=== PATIENT | male | born 1950 | race Caucasian/White ===

== ENCOUNTER 2020-06-03 17:04 | Emergency (ER) | payer SELFPAY ==
[~2020-06-03] VITALS: Ht 157.5 cm; Wt 78.0 kg
[~2020-06-03 17:04] MED LIST: ALBU90AE INH; AMOX-424 MT; ASPI-1158 MT; ATOR20TA MT; CLOP75TA4 MT; METO25TA6 PO; PHEN100C4 PO
[2020-06-03 17:07] VITALS: BP 162/98
[2020-06-03 19:39] LABS: BASOPHILS % 0.9 % (0.0-2.0); EOSINOPHILS % 7.8 % (0.0-5.0); HEMATOCRIT. 32.8 % (42.0-52.0); HEMOGLOBIN. 11.5 g/dL (14.0-18.0); LYMPHOCYTES % 46.5 % (20.0-50.0); MEAN CORPUSCULAR HEMOGLOBIN 33.6 pg (28.0-32.0); MEAN CORPUSCULAR VOLUME 96.3 fL (80.0-94.0); MEAN PLATELET VOLUME 9.8 fl (7.4-10.4); MONOCYTES % 5.7 % (2.0-8.0); NEUTROPHILS % 39.1 % (40.0-76.0); PLATELET 195 x1000/uL (130-400); RED CELL DISTRIBUTION WIDTH 14.9 % (11.6-14.6)
[2020-06-03 19:40] LABS: CHLORIDE 90 mEq/L (98-107)
[2020-06-03 19:56] LABS: ETHANOL BLOOD 324 mg/dL
== END 2020-06-03 19:45 | disposition home or self-care (01) ==
LOC: ER 17:04
DX: S00.31XA Abrasion of nose, initial encounter (principal); E87.8 Other disorders of electrolyte and fluid balance, not elsewhere classified; I10 Essential (primary) hypertension; F10.129 Alcohol abuse with intoxication, unspecified; E78.00 Pure hypercholesterolemia, unspecified; Y90.8 Blood alcohol level of 240 mg/100 ml or more; Z79.82 Long term (current) use of aspirin; V43.52XA Car driver injured in collision with other type car in traffic accident, initial encounter; Y93.89 Activity, other specified; Y92.488 Other paved roadways as the place of occurrence of the external cause
CPT/HCPCS: 36415; 80053; 80320; 85025; 99283; G0480

== ENCOUNTER 2020-06-26 02:36 | Inpatient (IN) | payer BC, MEDICARE ==
[~2020-06-26] VITALS: Ht 170.2 cm; Wt 67.6 kg
[2020-06-26] MEDS ORDERED: FUROSEMIDE 40MG/4ML VIAL IV ONE (03:00)
[2020-06-26] MEDS ORDERED: MORPHINE SULFATE 4 MG/ML CPJ (NOT FOR IM USE) IV ONE (03:30)
[2020-06-26 03:36] LABS: BASOPHILS % 0.7 % (0.0-2.0); EOSINOPHILS % 2.2 % (0.0-5.0); HEMATOCRIT. 34.8 % (42.0-52.0); HEMOGLOBIN. 11.8 g/dL (14.0-18.0); LYMPHOCYTES % 17.5 % (20.0-50.0); MEAN CORPUSCULAR HEMOGLOBIN 34.2 pg (28.0-32.0); MEAN CORPUSCULAR VOLUME 101.1 fL (80.0-94.0); MEAN PLATELET VOLUME 9.8 fl (7.4-10.4); MONOCYTES % 8.3 % (2.0-8.0); NEUTROPHILS % 71.3 % (40.0-76.0); PLATELET 189 x1000/uL (130-400); RED BLOOD CELL COUNT 3.44 mill/uL (4.7-6.1); RED CELL DISTRIBUTION WIDTH 15.4 % (11.6-14.6)
[2020-06-26 03:41] LABS: CHLORIDE 104 mEq/L (98-107)
[2020-06-26 03:47] LABS: D-DIMER 1.71 mg/L FEU (<0.50); PARTIAL THROMBOPLASTIN TIME 25.6 sec (23.4-31.0); PROTHROMBIN TIME 10.6 sec (9.6-11.0)
[2020-06-26] MEDS ORDERED: DEXTROSE 50% WATER 50ML SYRINGE IV SCH (04:15)
[2020-06-26] MEDS ORDERED: INSULIN REGULAR (HUMULIN R) 300UNITS/3ML VIAL IV SCH (04:15)
[2020-06-26] MEDS ORDERED: CALCIUM CHLORIDE 1GM/10ML SYR IV SCH (04:15)
[2020-06-26] MEDS ORDERED: ASPIRIN 325MG EC TABLET PO SCH (04:15)
[2020-06-26] MEDS ORDERED: ALBUTEROL (0.083%) 2.5MG/3ML NEB HHN SCH (04:15)
[2020-06-26] MEDS ORDERED: SODIUM BICARBONATE 8.4% 1 MEQ/ML 50ML SYR IV SCH (04:15)
[2020-06-26] MEDS ORDERED: ALBUTEROL (0.5%) 2.5MG/0.5ML NEB HHN ONE (04:37)
[2020-06-26] MEDS: ENOXAPARIN 80MG/0.8ML SYR SUBCUT SCH ×2 (04:40→18:00)
[2020-06-26 05:17] LABS: PARTIAL THROMBOPLASTIN TIME 26.4 sec (23.4-31.0); PROTHROMBIN TIME 10.9 sec (9.6-11.0)
[2020-06-26] MEDS ORDERED: CLONIDINE 0.1MG TABLET PO PRN (10:30)
[2020-06-26] MEDS ORDERED: GUAIFENESIN 200MG/10ML SUGAR FREE UDC PO PRN (10:30)
[2020-06-26] MEDS ORDERED: LORAZEPAM 0.5MG TABLET PO PRN (10:30)
[2020-06-26] MEDS ORDERED: DIPHENHYDRAMINE 50MG/ML VIAL IV PRN (10:30)
[2020-06-26] MEDS ORDERED: ONDANSETRON HCL 4MG/2ML INJ IV PRN (10:30)
[2020-06-26] MEDS ORDERED: DOCUSATE SODIUM 100MG CAPSULE PO PRN (10:30)
[2020-06-26] MEDS ORDERED: CEFTRIAXONE 1 G PREMIX 50 ML IV NR (10:30)
[2020-06-26] MEDS ORDERED: ACETAMINOPHEN 650MG SUPP PR PRN (10:30)
[2020-06-26] MEDS ORDERED: NA PHOS,M-B/NA PHOS,DI-BA ENEMA 118ML PR PRN (10:30)
[2020-06-26] MEDS ORDERED: DEXTROSE 50% WATER 50ML SYRINGE IV PRN (10:30)
[2020-06-26] MEDS ORDERED: HYDROCODONE/ACETAMINOPHEN 5/325MG TABLET PO PRN (10:30)
[2020-06-26] MEDS ORDERED: ACETAMINOPHEN 325MG TABLET PO PRN (10:30)
[2020-06-26] MEDS ORDERED: MAGNESIUM/ALUMINUM HYDROXIDE/SIMETHICONE 30ML UDC PO PRN (10:30)
[2020-06-26] MEDS ORDERED: AZITHROMYCIN 500 MG in DEXT 5% WATER 250 ML IV SCH (11:00)
[2020-06-26 11:05] LABS: BG BASE EXCESS -7.4 mmol/L (-2.0-2.0); BG CARBOXYHEMOGLOBIN 0.2 % (0.5-1.5); BG DEOXYHEMOGLOBIN 0.9 % (0.0-5.0); BG FRACTION INSPIRED OXYGEN 60; BG HCO3 ACT 15.2 mmol/L (22.0-26.0); BG METHEMOGLOBIN 0.3 % (0.0-1.5); BG OXYGEN SATURATION 99.1 % (92.0-98.5); BG OXYHEMOGLOBIN 98.6 % (94.0-97.0); BG PCO2 22.2 mmHg (35.0-45.0); BG PH 7.453 (7.350-7.450); BG PO2 282.4 mmHg (75.0-100.0); BG SAMPLE SITE RIGHT RADIAL; BG TOTAL HEMOGLOBIN 9.5 g/dL (12.0-18.0); BG TOTAL RESPIRATORY RATE 21 b/min; BG VENT MODE MASK - BIPAP
[2020-06-26] MEDS: FAMOTIDINE 20MG/2ML VIAL IV SCH (11:36)
[2020-06-26] MEDS: INSULIN LISPRO 100 UNITS/ML SUBCUT SCH ×3 (13:20→21:16)
[2020-06-26] MEDS: BLOOD SUGAR DIAGNOSTIC STRIP TEST SCH ×3 (13:50→21:09)
[2020-06-26] MEDS: NITROGLYCERIN OINT 1GM/INCH UDPKT TD SCH ×2 (14:08→23:41)
[2020-06-26 15:09] LABS: CREATINE KINASE MB FRACTION 3.6 ng/mL (0.5-3.6)
[2020-06-26] MEDS ORDERED: IOHEXOL-350 100 ML BOTTLE ONE (19:01)
[2020-06-26] MEDS: ATORVASTATIN CALCIUM 20MG TABLET PO SCH (21:16)
[2020-06-26 23:00] VITALS: BP 121/72
[2020-06-27 00:28] VITALS: BP 117/74
[2020-06-27] MEDS: ENOXAPARIN 80MG/0.8ML SYR SUBCUT SCH ×2 (03:01→16:00)
[2020-06-27 04:00] VITALS: BP 130/76
[2020-06-27] MEDS: NITROGLYCERIN OINT 1GM/INCH UDPKT TD SCH ×3 (05:38→20:42)
[2020-06-27] MEDS: INSULIN LISPRO 100 UNITS/ML SUBCUT SCH ×4 (05:50→19:26)
[2020-06-27] MEDS: BLOOD SUGAR DIAGNOSTIC STRIP TEST SCH ×4 (05:50→19:26)
[2020-06-27 06:03] LABS: CHLORIDE 102 mEq/L (98-107)
[2020-06-27 06:14] LABS: LDL CHOLESTEROL 84 mg/dL (5-100)
[2020-06-27 06:15] LABS: HDL CHOLESTEROL 53 mg/dL (40-59); T4 FREE 1.02 ng/dL (0.76-1.46)
[2020-06-27 06:16] LABS: BASOPHILS % 0.8 % (0.0-2.0); EOSINOPHILS % 2.9 % (0.0-5.0); HEMOGLOBIN. 8.9 g/dL (14.0-18.0); LYMPHOCYTES % 22.3 % (20.0-50.0); MEAN CORPUSCULAR HEMOGLOBIN 34.1 pg (28.0-32.0); MEAN CORPUSCULAR VOLUME 99.8 fL (80.0-94.0); MEAN PLATELET VOLUME 9.7 fl (7.4-10.4); PLATELET 151 x1000/uL (130-400); RED BLOOD CELL COUNT 2.61 mill/uL (4.7-6.1); RED CELL DISTRIBUTION WIDTH 15.1 % (11.6-14.6)
[2020-06-27 08:00] VITALS: BP 138/86
[2020-06-27] MEDS: FAMOTIDINE 20MG/2ML VIAL IV SCH (08:33)
[2020-06-27] MEDS: ASPIRIN 81MG EC TABLET PO SCH (08:33)
[2020-06-27] MEDS: CLOPIDOGREL 75MG TABLET PO SCH (08:33)
[2020-06-27] MEDS: CEFTRIAXONE 1,000 MG in DEXTROSE 5% WATER 50 ML IV SCH (10:22)
[2020-06-27 12:25] VITALS: BP 130/66
[2020-06-27] MEDS: PHENYTOIN SODIUM EXTENDED 100MG CAPSULE PO SCH ×2 (12:45→20:42)
[2020-06-27] MEDS: AZITHROMYCIN 500 MG in DEXT 5% WATER 250 ML IV SCH (13:03)
[2020-06-27 14:17] LABS: BG BASE EXCESS -1.7 mmol/L (-2.0-2.0); BG DEOXYHEMOGLOBIN 3.7 % (0.0-5.0); BG FRACTION INSPIRED OXYGEN 21; BG HCO3 ACT 21.9 mmol/L (22.0-26.0); BG METHEMOGLOBIN 0.2 % (0.0-1.5); BG OXYGEN SATURATION 96.3 % (92.0-98.5); BG OXYHEMOGLOBIN 96.1 % (94.0-97.0); BG PCO2 33.2 mmHg (35.0-45.0); BG PH 7.438 (7.350-7.450); BG PO2 84.9 mmHg (75.0-100.0); BG SAMPLE SITE RIGHT RADIAL; BG TOTAL HEMOGLOBIN 10.3 g/dL (12.0-18.0); BG VENT MODE ROOM AIR
[2020-06-27 16:00] VITALS: BP 119/66
[2020-06-27 20:00] VITALS: BP 118/70
[2020-06-27] MEDS: ATORVASTATIN CALCIUM 20MG TABLET PO SCH (20:42)
[2020-06-28 00:01] VITALS: BP 137/76
[2020-06-28] MEDS: ENOXAPARIN 80MG/0.8ML SYR SUBCUT SCH (03:37)
[2020-06-28 04:00] VITALS: BP 124/81
[2020-06-28] MEDS: BLOOD SUGAR DIAGNOSTIC STRIP TEST SCH ×4 (05:45→19:55)
[2020-06-28] MEDS: NITROGLYCERIN OINT 1GM/INCH UDPKT TD SCH ×3 (05:45→20:52)
[2020-06-28] MEDS: PHENYTOIN SODIUM EXTENDED 100MG CAPSULE PO SCH ×3 (05:45→20:52)
[2020-06-28] MEDS: INSULIN LISPRO 100 UNITS/ML SUBCUT SCH ×4 (05:46→20:54)
[2020-06-28 07:14] LABS: BASOPHILS % 0.9 % (0.0-2.0); EOSINOPHILS % 3.4 % (0.0-5.0); HEMATOCRIT. 26.6 % (42.0-52.0); HEMOGLOBIN. 9.3 g/dL (14.0-18.0); LYMPHOCYTES % 18.1 % (20.0-50.0); MEAN CORPUSCULAR HEMOGLOBIN 34.6 pg (28.0-32.0); MEAN CORPUSCULAR VOLUME 98.8 fL (80.0-94.0); MEAN PLATELET VOLUME 9.5 fl (7.4-10.4); MONOCYTES % 12.3 % (2.0-8.0); NEUTROPHILS % 65.3 % (40.0-76.0); PLATELET 168 x1000/uL (130-400); RED BLOOD CELL COUNT 2.69 mill/uL (4.7-6.1); RED CELL DISTRIBUTION WIDTH 14.9 % (11.6-14.6)
[2020-06-28 07:19] LABS: CHLORIDE 102 mEq/L (98-107)
[2020-06-28 08:00] VITALS: BP 110/53
[2020-06-28] MEDS: CLOPIDOGREL 75MG TABLET PO SCH (10:03)
[2020-06-28] MEDS: ASPIRIN 81MG EC TABLET PO SCH (10:03)
[2020-06-28] MEDS: CEFTRIAXONE 1,000 MG in DEXTROSE 5% WATER 50 ML IV SCH (10:03)
[2020-06-28] MEDS: FAMOTIDINE 20MG/2ML VIAL IV SCH (10:03)
[2020-06-28 11:57] VITALS: BP 114/52
[2020-06-28] MEDS: AZITHROMYCIN 500 MG in DEXT 5% WATER 250 ML IV SCH (12:40)
[2020-06-28 15:28] VITALS: BP 113/62
[2020-06-28] MEDS: ENOXAPARIN 40MG/0.4ML SYR SUBCUT SCH (16:40)
[2020-06-28 20:00] VITALS: BP 130/73
[2020-06-28] MEDS: ATORVASTATIN CALCIUM 20MG TABLET PO SCH (20:52)
[2020-06-29] VITALS (7 sets, daily range): BP systolic 105–150; BP diastolic 59–98
[2020-06-29] MEDS: NITROGLYCERIN OINT 1GM/INCH UDPKT TD SCH ×3 (06:34→21:15)
[2020-06-29] MEDS: PHENYTOIN SODIUM EXTENDED 100MG CAPSULE PO SCH ×3 (06:34→21:15)
[2020-06-29] MEDS: BLOOD SUGAR DIAGNOSTIC STRIP TEST SCH ×4 (06:40→21:09)
[2020-06-29] MEDS: INSULIN LISPRO 100 UNITS/ML SUBCUT SCH ×4 (06:40→21:00)
[2020-06-29 07:27] LABS: CHLORIDE 103 mEq/L (98-107)
[2020-06-29 07:32] LABS: EOSINOPHILS % 4.5 % (0.0-5.0); HEMATOCRIT. 25.7 % (42.0-52.0); HEMOGLOBIN. 8.8 g/dL (14.0-18.0); LYMPHOCYTES % 22.2 % (20.0-50.0); MEAN PLATELET VOLUME 9.3 fl (7.4-10.4); MONOCYTES % 12.9 % (2.0-8.0); NEUTROPHILS % 59.4 % (40.0-76.0); PLATELET 161 x1000/uL (130-400); RED CELL DISTRIBUTION WIDTH 14.8 % (11.6-14.6)
[2020-06-29] MEDS: CLOPIDOGREL 75MG TABLET PO SCH (08:19)
[2020-06-29] MEDS: FAMOTIDINE 20MG/2ML VIAL IV SCH (08:19)
[2020-06-29] MEDS: ASPIRIN 81MG EC TABLET PO SCH (08:19)
[2020-06-29] MEDS: AZITHROMYCIN 500 MG TABLET PO SCH (08:19)
[2020-06-29] MEDS: ENOXAPARIN 40MG/0.4ML SYR SUBCUT SCH (08:19)
[2020-06-29] MEDS: CEFTRIAXONE 1,000 MG in DEXTROSE 5% WATER 50 ML IV SCH (11:04)
[2020-06-29 13:01] LABS: HEMATOCRIT 28.2 % (42.0-52.0); HEMOGLOBIN 9.5 g/dL (14.0-18.0)
[2020-06-29] MEDS ORDERED: FUROSEMIDE 40MG/4ML VIAL IVP SCH (19:15)
[2020-06-29] MEDS: ATORVASTATIN CALCIUM 20MG TABLET PO SCH (21:36)
[2020-06-30] VITALS (8 sets, daily range): BP systolic 99–136; BP diastolic 63–76
[2020-06-30] MEDS: LOSARTAN POTASSIUM 50 MG TABLET PO SCH ×2 (00:11→09:00)
[2020-06-30 06:04] LABS: BASOPHILS % 1.3 % (0.0-2.0); EOSINOPHILS % 3.7 % (0.0-5.0); HEMATOCRIT. 26.6 % (42.0-52.0); HEMOGLOBIN. 8.9 g/dL (14.0-18.0); MEAN CORPUSCULAR HEMOGLOBIN 33.2 pg (28.0-32.0); MEAN CORPUSCULAR VOLUME 98.8 fL (80.0-94.0); MEAN PLATELET VOLUME 9.7 fl (7.4-10.4); PLATELET 178 x1000/uL (130-400); RED BLOOD CELL COUNT 2.69 mill/uL (4.7-6.1); RED CELL DISTRIBUTION WIDTH 14.6 % (11.6-14.6)
[2020-06-30] MEDS: PHENYTOIN SODIUM EXTENDED 100MG CAPSULE PO SCH ×3 (06:19→21:03)
[2020-06-30] MEDS: NITROGLYCERIN OINT 1GM/INCH UDPKT TD SCH ×3 (06:19→21:03)
[2020-06-30] MEDS: BLOOD SUGAR DIAGNOSTIC STRIP TEST SCH ×4 (06:25→20:26)
[2020-06-30 06:26] LABS: CHLORIDE 103 mEq/L (98-107)
[2020-06-30] MEDS ORDERED: REGADENOSON 0.4 MG/5 ML IV ONE (06:45)
[2020-06-30 06:57] LABS: CLARITY URINE CLEAR (CLEAR); COLOR URINE YELLOW (YELLOW); KETONES URINE NEGATIVE (NEGATIVE); LEUKOCYTE ESTERASE URINE NEGATIVE (NEGATIVE); NITRITE URINE NEGATIVE (NEGATIVE); OCCULT BLOOD URINE NEGATIVE (NEGATIVE); PH URINE 6.5 (4.5-8.0); PROTEIN URINE NEGATIVE (NEGATIVE); SPECIFIC GRAVITY URINE 1.011 (1.005-1.030); UROBILINOGEN URINE 0.2 E.U./dL (0.2-1.0)
[2020-06-30 07:12] LABS: *BARBITURATES SCREEN URINE NEGATIVE (NEGATIVE); *BENZODIAZEPINES SCREEN URINE NEGATIVE (NEGATIVE); *COCAINE SCREEN URINE NEGATIVE (NEGATIVE)
[2020-06-30 07:13] LABS: *AMPHETAMINES SCREEN URINE NEGATIVE (NEGATIVE); CANNABINOID URINE SCREEN NEGATIVE (NEGATIVE); METHADONE URINE SCREEN NEGATIVE (NEGATIVE); OPIATES URINE SCREEN NEGATIVE (NEGATIVE); PHENCYCLIDINE URINE SCREEN NEGATIVE (NEGATIVE)
[2020-06-30] MEDS: INSULIN LISPRO 100 UNITS/ML SUBCUT SCH ×4 (07:50→21:04)
[2020-06-30] MEDS: FUROSEMIDE 40MG/4ML VIAL IVP SCH (09:00)
[2020-06-30] MEDS: AMLODIPINE 2.5MG TABLET PO SCH ×2 (09:00→21:03)
[2020-06-30] MEDS: AZITHROMYCIN 500 MG TABLET PO SCH (09:00)
[2020-06-30] MEDS: FAMOTIDINE 20MG/2ML VIAL IV SCH (09:41)
[2020-06-30] MEDS: ASPIRIN 81MG EC TABLET PO SCH (09:41)
[2020-06-30] MEDS: CLOPIDOGREL 75MG TABLET PO SCH (09:41)
[2020-06-30] MEDS: POTASSIUM CHLORIDE 20MEQ TABLET SR PO SCH (09:41)
[2020-06-30] MEDS: ENOXAPARIN 40MG/0.4ML SYR SUBCUT SCH (11:06)
[2020-06-30] MEDS: CEFTRIAXONE 1,000 MG in DEXTROSE 5% WATER 50 ML IV SCH (11:09)
[2020-06-30] MEDS ORDERED: FUROSEMIDE 40MG/4ML VIAL IVP SCH (15:00)
[2020-06-30] MEDS: ATORVASTATIN CALCIUM 20MG TABLET PO SCH (21:03)
[2020-07-01] VITALS: BP 125/60
[2020-07-01] MEDS ORDERED: DEXT 5%/0.9% NACL 1,000 ML IV SCH
[2020-07-01 04:09] VITALS: BP 120/70
[2020-07-01] MEDS: PHENYTOIN SODIUM EXTENDED 100MG CAPSULE PO SCH ×3 (05:01→21:22)
[2020-07-01] MEDS: NITROGLYCERIN OINT 1GM/INCH UDPKT TD SCH ×3 (06:14→17:13)
[2020-07-01] MEDS: BLOOD SUGAR DIAGNOSTIC STRIP TEST SCH ×4 (06:23→21:22)
[2020-07-01 06:56] LABS: EOSINOPHILS % 4.3 % (0.0-5.0); HEMATOCRIT. 28.2 % (42.0-52.0); HEMOGLOBIN. 9.6 g/dL (14.0-18.0); LYMPHOCYTES % 24.8 % (20.0-50.0); MEAN CORPUSCULAR HEMOGLOBIN 33.7 pg (28.0-32.0); MEAN CORPUSCULAR VOLUME 98.8 fL (80.0-94.0); MEAN PLATELET VOLUME 9.4 fl (7.4-10.4); MONOCYTES % 9.6 % (2.0-8.0); NEUTROPHILS % 60.3 % (40.0-76.0); PLATELET 201 x1000/uL (130-400); RED BLOOD CELL COUNT 2.85 mill/uL (4.7-6.1); RED CELL DISTRIBUTION WIDTH 15.1 % (11.6-14.6)
[2020-07-01 07:09] LABS: CHLORIDE 102 mEq/L (98-107)
[2020-07-01] MEDS: INSULIN LISPRO 100 UNITS/ML SUBCUT SCH ×4 (07:50→21:00)
[2020-07-01 08:11] VITALS: BP 149/81
[2020-07-01] MEDS: ENOXAPARIN 40MG/0.4ML SYR SUBCUT SCH (08:28)
[2020-07-01] MEDS: ASPIRIN 81MG EC TABLET PO SCH (08:28)
[2020-07-01] MEDS: FUROSEMIDE 40MG/4ML VIAL IVP SCH (08:28)
[2020-07-01] MEDS: FAMOTIDINE 20MG/2ML VIAL IV SCH (08:28)
[2020-07-01] MEDS: CLOPIDOGREL 75MG TABLET PO SCH (08:28)
[2020-07-01] MEDS: LOSARTAN POTASSIUM 50 MG TABLET PO SCH (08:28)
[2020-07-01] MEDS: POTASSIUM CHLORIDE 20MEQ TABLET SR PO SCH (08:29)
[2020-07-01] MEDS: AMLODIPINE 2.5MG TABLET PO SCH ×2 (08:29→21:00)
[2020-07-01] MEDS ORDERED: IPRATROPIUM/ALBUTEROL 0.5-3(2.5)MG/3ML NEB HHN NR (08:30)
[2020-07-01] MEDS: CEFTRIAXONE 1,000 MG in DEXTROSE 5% WATER 50 ML IV SCH (12:02)
[2020-07-01 12:12] VITALS: BP 135/73
[2020-07-01] MEDS ORDERED: NITROGLYCERIN 0.4MG TABLET SL SL PRN (13:15)
[2020-07-01] MEDS: IPRATROPIUM/ALBUTEROL 0.5-3(2.5)MG/3ML NEB HHN SCH ×2 (13:31→21:27)
[2020-07-01 15:53] VITALS: BP 133/77
[2020-07-01 20:00] VITALS: BP 94/52
[2020-07-01] MEDS: ATORVASTATIN CALCIUM 20MG TABLET PO SCH (21:22)
[2020-07-02] VITALS (11 sets, daily range): BP systolic 100–140; BP diastolic 57–98
[2020-07-02] MEDS: IPRATROPIUM/ALBUTEROL 0.5-3(2.5)MG/3ML NEB HHN SCH ×2 (01:39→09:32)
[2020-07-02] MEDS: NITROGLYCERIN OINT 1GM/INCH UDPKT TD SCH ×5 (06:00→23:54)
[2020-07-02] MEDS: PHENYTOIN SODIUM EXTENDED 100MG CAPSULE PO SCH ×3 (06:16→21:23)
[2020-07-02] MEDS: BLOOD SUGAR DIAGNOSTIC STRIP TEST SCH ×4 (06:17→21:11)
[2020-07-02 06:50] LABS: HEMATOCRIT. 27.5 % (42.0-52.0); HEMOGLOBIN. 9.4 g/dL (14.0-18.0); MEAN CORPUSCULAR HEMOGLOBIN 33.6 pg (28.0-32.0); MEAN CORPUSCULAR VOLUME 98.4 fL (80.0-94.0); MEAN PLATELET VOLUME 9.4 fl (7.4-10.4); PLATELET 211 x1000/uL (130-400); RED CELL DISTRIBUTION WIDTH 15.2 % (11.6-14.6)
[2020-07-02 07:20] LABS: CHLORIDE 105 mEq/L (98-107)
[2020-07-02] MEDS: INSULIN LISPRO 100 UNITS/ML SUBCUT SCH ×4 (07:50→21:23)
[2020-07-02] MEDS: LOSARTAN POTASSIUM 50 MG TABLET PO SCH (09:00)
[2020-07-02] MEDS: AMLODIPINE 2.5MG TABLET PO SCH ×2 (09:00→21:23)
[2020-07-02] MEDS: ASPIRIN 81MG EC TABLET PO SCH (09:00)
[2020-07-02] MEDS: FUROSEMIDE 40MG/4ML VIAL IVP SCH (09:00)
[2020-07-02] MEDS: POTASSIUM CHLORIDE 20MEQ TABLET SR PO SCH (09:00)
[2020-07-02] MEDS: CLOPIDOGREL 75MG TABLET PO SCH (09:00)
[2020-07-02] MEDS: FAMOTIDINE 20MG/2ML VIAL IV SCH (09:00)
[2020-07-02] MEDS ORDERED: NITROGLYCERIN 50MCG/ML 10ML VIAL (CATH LAB) IV ONE (12:00)
[2020-07-02] MEDS ORDERED: SODIUM CHLORIDE 0.45% 1,000 ML IV ONE (12:00)
[2020-07-02] MEDS ORDERED: NICARDIPINE 100MCG/ML 10ML VIAL (CATH LAB) IV ONE (12:00)
[2020-07-02] MEDS ORDERED: HEPARIN SODIUM 1,000 UNIT/1ML VIAL IV ONE (12:00)
[2020-07-02] MEDS ORDERED: IODIXANOL 320MG/ML 100 ML BOTTLE IV ONE ×2 (12:45→14:03)
[2020-07-02] MEDS ORDERED: LIDOCAINE HCL 1% 20ML VIAL (Pyxis) INJ ONE (12:45)
[2020-07-02] MEDS ORDERED: MIDAZOLAM HCL 2 MG/2 ML VIAL ONE (12:58)
[2020-07-02] MEDS ORDERED: FENTANYL CITRATE/PF 50MCG/ML 2ML VIAL ONE (12:59)
[2020-07-02 13:05] LABS: PLATELET ESTIMATE NORMAL
[2020-07-02] MEDS ORDERED: IOHEXOL-300 100 ML BOTTLE ONE (13:44)
[2020-07-02] MEDS ORDERED: ACETAMINOPHEN 325MG TABLET PO PRN (14:45)
[2020-07-02] MEDS ORDERED: ONDANSETRON HCL 4MG/2ML INJ IV PRN (14:45)
[2020-07-02] MEDS ORDERED: ATROPINE SULFATE 1MG/10ML SYR IV PRN (14:45)
[2020-07-02] MEDS ORDERED: CLOPIDOGREL 75MG TABLET ONE (14:48)
[2020-07-02] MEDS ORDERED: ASPIRIN 325MG EC TABLET PO ONE (14:49)
[2020-07-02] MEDS: ATORVASTATIN CALCIUM 20MG TABLET PO SCH (21:23)
[2020-07-03] VITALS (10 sets, daily range): BP systolic 106–144; BP diastolic 60–94
[2020-07-03] MEDS: IPRATROPIUM/ALBUTEROL 0.5-3(2.5)MG/3ML NEB HHN SCH ×3 (01:03→16:26)
[2020-07-03] MEDS: NITROGLYCERIN OINT 1GM/INCH UDPKT TD SCH ×2 (05:49→14:32)
[2020-07-03] MEDS: PHENYTOIN SODIUM EXTENDED 100MG CAPSULE PO SCH ×2 (05:49→14:31)
[2020-07-03] MEDS: BLOOD SUGAR DIAGNOSTIC STRIP TEST SCH ×3 (06:35→16:50)
[2020-07-03] MEDS: INSULIN LISPRO 100 UNITS/ML SUBCUT SCH ×3 (06:35→17:20)
[2020-07-03 07:15] LABS: CHLORIDE 103 mEq/L (98-107)
[2020-07-03 07:46] LABS: BASOPHILS % 0.8 % (0.0-2.0); HEMATOCRIT. 27.4 % (42.0-52.0); HEMOGLOBIN. 9.3 g/dL (14.0-18.0); LYMPHOCYTES % 9.6 % (20.0-50.0); MEAN CORPUSCULAR HEMOGLOBIN 33.6 pg (28.0-32.0); MEAN PLATELET VOLUME 9.6 fl (7.4-10.4); MONOCYTES % 8.6 % (2.0-8.0); PLATELET 218 x1000/uL (130-400); RED BLOOD CELL COUNT 2.77 mill/uL (4.7-6.1); RED CELL DISTRIBUTION WIDTH 15.2 % (11.6-14.6)
[2020-07-03] MEDS: LOSARTAN POTASSIUM 50 MG TABLET PO SCH ×2 (09:00→10:00)
[2020-07-03] MEDS: AMLODIPINE 2.5MG TABLET PO SCH (09:00)
[2020-07-03] MEDS ORDERED: ASPIRIN 325MG TABLET PO SCH (09:00)
[2020-07-03] MEDS ORDERED: CLOPIDOGREL 75MG TABLET PO SCH (09:00)
[2020-07-03] MEDS: ASPIRIN 81MG EC TABLET PO SCH (09:00)
[2020-07-03] MEDS: POTASSIUM CHLORIDE 20MEQ TABLET SR PO SCH (10:01)
[2020-07-03] MEDS: FAMOTIDINE 20MG/2ML VIAL IV SCH (10:02)
[2020-07-03] MEDS: FUROSEMIDE 40MG/4ML VIAL IVP SCH (10:02)
[2020-07-03] MEDS ORDERED: FURO-151 MT (11:28)
[2020-07-03] MEDS ORDERED: LORAZEPAM 2MG/ML CPJ IV PRN (11:30)
[2020-07-03] MEDS ORDERED: THIAMINE HCL 100MG TABLET PO SCH (11:30)
[2020-07-03] MEDS ORDERED: MULTIVITAMINS,THER W-MINERALS TABLET PO SCH (11:30)
[2020-07-03] MEDS ORDERED: FOLIC ACID 1MG TABLET PO SCH (11:30)
[2020-07-03] MEDS ORDERED: METOPROLOL TARTRATE 25MG TABLET PO SCH (13:00)
== END 2020-07-03 18:00 | disposition home or self-care (01) | DRG 246 ==
LOC: ER 02:36 → 6WST 06:42 → SUPCPDRO 10:18 → EDBEDREQSVC 14:26 → CANRESERV 20:38 → ENRESERV 20:38 → 3WST 07-02 15:02
PROVIDERS: ADMIT Internal Medicine; ATTEND Internal Medicine
PROC: 5A09357 Assistance with Respiratory Ventilation, Less than 24 Consecutive Hours, Continuous Positive Airway Pressure (ICD-10-PCS; 2020-06-26)
PROC: 027035Z Dilation of Coronary Artery, One Artery with Two Drug-eluting Intraluminal Devices, Percutaneous Approach (ICD-10-PCS; principal; 2020-07-02)
PROC: 4A023N6 Measurement of Cardiac Sampling and Pressure, Right Heart, Percutaneous Approach (ICD-10-PCS; 2020-07-02)
PROC: B2111ZZ Fluoroscopy of Multiple Coronary Arteries using Low Osmolar Contrast (ICD-10-PCS; 2020-07-02)
PROC: B2151ZZ Fluoroscopy of Left Heart using Low Osmolar Contrast (ICD-10-PCS; 2020-07-02)
DX: T82.855A Stenosis of coronary artery stent, initial encounter (principal); I21.4 Non-ST elevation (NSTEMI) myocardial infarction; J96.01 Acute respiratory failure with hypoxia; I50.33 Acute on chronic diastolic (congestive) heart failure; J18.9 Pneumonia, unspecified organism; E87.1 Hypo-osmolality and hyponatremia; G93.40 Encephalopathy, unspecified; R04.2 Hemoptysis; I25.10 Atherosclerotic heart disease of native coronary artery without angina pectoris; E87.5 Hyperkalemia; I11.0 Hypertensive heart disease with heart failure; E78.5 Hyperlipidemia, unspecified; E11.9 Type 2 diabetes mellitus without complications; F10.20 Alcohol dependence, uncomplicated; D64.9 Anemia, unspecified; I27.20 Pulmonary hypertension, unspecified; F17.200 Nicotine dependence, unspecified, uncomplicated; I34.0 Nonrheumatic mitral (valve) insufficiency; J98.01 Acute bronchospasm; Y83.1 Surgical operation with implant of artificial internal device as the cause of abnormal reaction of the patient, or of later complication, without mention of misadventure at the time of the procedure; Z20.828 Contact with and (suspected) exposure to other viral communicable diseases; Y92.89 Other specified places as the place of occurrence of the external cause; Z79.02 Long term (current) use of antithrombotics/antiplatelets; Z95.5 Presence of coronary angioplasty implant and graft; I25.2 Old myocardial infarction; Z79.899 Other long term (current) drug therapy; Z79.2 Long term (current) use of antibiotics; Z79.82 Long term (current) use of aspirin; Z72.89 Other problems related to lifestyle
CPT/HCPCS: 36415; 36600; 71045; 71275; 80048; 80053; 80061; 80305; 81003; 82270; 82375; 82550; 82553; 82805; 82962; 83036; 83880; 84132; 84439; 84443; 84484; 85014; 85018; 85025; 85347; 85379; 86850; 86900; 87635; 92928; 93005; 93306; 93454; 93970; 94618; 94660; 99285; C1760; C1769; C1874; C1887; C1893; J0456; J0696; J1644; J1650; J1815; J1940; J2250; J2270; J3010; J3490; J7042; J7060; Q9967; C1725

== ENCOUNTER 2020-10-22 12:50 | Inpatient (IN) | payer MEDICARE, OTHER ==
[~2020-10-22] VITALS: Ht 165.1 cm; Wt 71.2 kg
[2020-10-22] MEDS: INSULIN LISPRO 100 UNITS/ML SUBCUT SCH (07:47)
[~2020-10-22 12:50] MED LIST changes: -ASPI-1158 MT; +ASPI-1406 MT; +CLOP-31 MT; -CLOP75TA4 MT; +FURO-151 MT
[2020-10-22] MEDS ORDERED: ASPIRIN 81MG TABLET PO ONE (13:30)
[2020-10-22] MEDS ORDERED: NITROGLYCERIN OINT 1GM/INCH UDPKT TD ONE (13:30)
[2020-10-22] MEDS ORDERED: FUROSEMIDE 40MG/4ML VIAL IV ONE (13:30)
[2020-10-22 14:13] LABS: BASOPHILS % 0.9 % (0.0-2.0); EOSINOPHILS % 1.2 % (0.0-5.0); HEMATOCRIT. 37.8 % (42.0-52.0); HEMOGLOBIN. 12.2 g/dL (14.0-18.0); LYMPHOCYTES % 23.8 % (20.0-50.0); MEAN CORPUSCULAR HEMOGLOBIN 31.7 pg (28.0-32.0); MEAN CORPUSCULAR VOLUME 97.9 fL (80.0-94.0); MEAN PLATELET VOLUME 10.1 fl (7.4-10.4); MONOCYTES % 6.8 % (2.0-8.0); NEUTROPHILS % 67.3 % (40.0-76.0); PLATELET 150 x1000/uL (130-400); RED BLOOD CELL COUNT 3.86 mill/uL (4.7-6.1)
[2020-10-22 14:19] LABS: CHLORIDE 98 mEq/L (98-107)
[2020-10-22] MEDS ORDERED: SODIUM BICARBONATE 8.4% 1 MEQ/ML 50ML SYR IV ONE (15:15)
[2020-10-22] MEDS ORDERED: DEXTROSE 50% WATER 50ML SYRINGE IV ONE (15:15)
[2020-10-22] MEDS ORDERED: ALBUTEROL (0.083%) 2.5MG/3ML NEB HHN ONE (15:15)
[2020-10-22] MEDS ORDERED: INSULIN REGULAR (HUMULIN R) 300UNITS/3ML VIAL IV ONE (15:15)
[2020-10-22] MEDS ORDERED: SODIUM POLYSTYRENE SULFONATE 15 G/60 ML BOT PO ONE (15:15)
[2020-10-22 15:37] LABS: D-DIMER 3.34 mg/L FEU (<0.50); INR 1.4; PARTIAL THROMBOPLASTIN TIME 29.1 sec (23.4-31.0); PROTHROMBIN TIME 14.7 sec (9.6-11.0)
[2020-10-22] MEDS ORDERED: IPRATROPIUM/ALBUTEROL 0.5-3(2.5)MG/3ML NEB NEB PRN (19:00)
[2020-10-22] MEDS ORDERED: DEXTROSE 50% WATER 50ML SYRINGE IV PRN (19:00)
[2020-10-22] MEDS ORDERED: HYDROCODONE/ACETAMINOPHEN 5/325MG TABLET PO PRN (19:00)
[2020-10-22] MEDS ORDERED: NA PHOS,M-B/NA PHOS,DI-BA ENEMA 118ML PR PRN (19:00)
[2020-10-22] MEDS ORDERED: LORAZEPAM 0.5MG TABLET PO PRN (19:00)
[2020-10-22] MEDS ORDERED: ACETAMINOPHEN 650MG SUPP PR PRN (19:00)
[2020-10-22] MEDS ORDERED: GUAIFENESIN 200MG/10ML SUGAR FREE UDC PO PRN (19:00)
[2020-10-22] MEDS ORDERED: MAGNESIUM/ALUMINUM HYDROXIDE/SIMETHICONE 30ML UDC PO PRN (19:00)
[2020-10-22] MEDS ORDERED: DIPHENHYDRAMINE 50MG/ML VIAL IV PRN (19:00)
[2020-10-22] MEDS ORDERED: CLONIDINE 0.1MG TABLET PO PRN (19:00)
[2020-10-22] MEDS ORDERED: DOCUSATE SODIUM 100MG CAPSULE PO PRN (19:00)
[2020-10-22] MEDS ORDERED: ONDANSETRON HCL 4MG/2ML INJ IV PRN (19:00)
[2020-10-22] MEDS ORDERED: ACETAMINOPHEN 325MG TABLET PO PRN (19:00)
[2020-10-22] MEDS ORDERED: IOHEXOL-350 100 ML BOTTLE ONE (19:02)
[2020-10-22] MEDS: BLOOD SUGAR DIAGNOSTIC STRIP TEST SCH (21:00)
[2020-10-22 23:17] LABS: BG BASE EXCESS 2.8 mmol/L (-2.0-2.0); BG CARBOXYHEMOGLOBIN 0.5 % (0.5-1.5); BG DEOXYHEMOGLOBIN 6.2 % (0.0-5.0); BG FRACTION INSPIRED OXYGEN 21; BG METHEMOGLOBIN 0.3 % (0.0-1.5); BG OXYGEN SATURATION 93.8 % (92.0-98.5); BG PCO2 35.2 mmHg (35.0-45.0); BG PH 7.486 (7.350-7.450); BG PO2 68.7 mmHg (75.0-100.0); BG SAMPLE SITE RIGHT BRACHIAL; BG TOTAL HEMOGLOBIN 12.1 g/dL (12.0-18.0); BG VENT MODE ROOM AIR
[2020-10-23 00:17] LABS: CREATINE KINASE MB FRACTION 4.5 ng/mL (0.5-3.6)
[2020-10-23 01:56] VITALS: BP 141/70
[2020-10-23 04:00] VITALS: BP 124/64
[2020-10-23 07:17] LABS: BASOPHILS % 0.5 % (0.0-2.0); EOSINOPHILS % 1.8 % (0.0-5.0); HEMATOCRIT. 36.2 % (42.0-52.0); HEMOGLOBIN. 11.8 g/dL (14.0-18.0); LYMPHOCYTES % 17.8 % (20.0-50.0); MEAN CORPUSCULAR HEMOGLOBIN 31.6 pg (28.0-32.0); MEAN CORPUSCULAR VOLUME 96.9 fL (80.0-94.0); MEAN PLATELET VOLUME 10.2 fl (7.4-10.4); MONOCYTES % 7.1 % (2.0-8.0); NEUTROPHILS % 72.8 % (40.0-76.0); PLATELET 137 x1000/uL (130-400); RED BLOOD CELL COUNT 3.73 mill/uL (4.7-6.1); RED CELL DISTRIBUTION WIDTH 17.6 % (11.6-14.6)
[2020-10-23] MEDS: BLOOD SUGAR DIAGNOSTIC STRIP TEST SCH ×4 (07:20→21:00)
[2020-10-23 07:40] LABS: CHLORIDE 102 mEq/L (98-107)
[2020-10-23] MEDS: INSULIN LISPRO 100 UNITS/ML SUBCUT SCH ×4 (07:48→21:00)
[2020-10-23 07:57] LABS: LDL CHOLESTEROL 118 mg/dL (5-100); T4 FREE 1.08 ng/dL (0.76-1.46)
[2020-10-23 07:58] LABS: CREATINE KINASE 210 IU/L (39-308)
[2020-10-23 08:00] VITALS: BP 124/68
[2020-10-23 08:00] LABS: HDL CHOLESTEROL 39 mg/dL (40-59)
[2020-10-23] MEDS: FUROSEMIDE 40MG/4ML VIAL IVP SCH ×2 (09:00→22:00)
[2020-10-23] MEDS: METOPROLOL TARTRATE 25MG TABLET PO SCH ×3 (09:00→21:51)
[2020-10-23] MEDS ORDERED: SODIUM BICARBONATE 4% (2.4MEQ) 5ML VIAL IV ONE (09:28)
[2020-10-23] MEDS: PHENYTOIN SODIUM EXTENDED 100MG CAPSULE PO SCH ×3 (10:19→17:45)
[2020-10-23] MEDS ORDERED: POTASSIUM CHLORIDE INJ 40 MEQ in DEXT 5% WATER 250 ML IV NR (11:00)
[2020-10-23 12:00] VITALS: BP 114/62
[2020-10-23] MEDS ORDERED: POTASSIUM CHLORIDE 20MEQ TABLET SR PO SCH (13:00)
[2020-10-23] MEDS ORDERED: POTASSIUM CHLORIDE 20MEQ/PACKET PO NR (14:45)
[2020-10-23] MEDS ORDERED: CLOPIDOGREL 75MG TABLET PO SCH (15:45)
[2020-10-23 16:00] VITALS: BP 124/66
[2020-10-23 20:00] VITALS: BP 137/94
[2020-10-23] MEDS: FAMOTIDINE 20MG TABLET PO SCH (21:52)
[2020-10-24 00:46] VITALS: BP 107/67
[2020-10-24 02:12] LABS: CLARITY URINE CLEAR (CLEAR); COLOR URINE YELLOW (YELLOW); KETONES URINE NEGATIVE (NEGATIVE); LEUKOCYTE ESTERASE URINE NEGATIVE (NEGATIVE); NITRITE URINE NEGATIVE (NEGATIVE); OCCULT BLOOD URINE NEGATIVE (NEGATIVE); PROTEIN URINE NEGATIVE (NEGATIVE); SPECIFIC GRAVITY URINE 1.011 (1.005-1.030)
[2020-10-24 02:24] LABS: *BARBITURATES SCREEN URINE NEGATIVE (NEGATIVE); *BENZODIAZEPINES SCREEN URINE NEGATIVE (NEGATIVE); *COCAINE SCREEN URINE NEGATIVE (NEGATIVE)
[2020-10-24 02:26] LABS: CANNABINOID URINE SCREEN NEGATIVE (NEGATIVE); OPIATES URINE SCREEN NEGATIVE (NEGATIVE)
[2020-10-24 02:28] LABS: *AMPHETAMINES SCREEN URINE NEGATIVE (NEGATIVE)
[2020-10-24 02:31] LABS: METHADONE URINE SCREEN NEGATIVE (NEGATIVE)
[2020-10-24 02:37] LABS: PHENCYCLIDINE URINE SCREEN NEGATIVE (NEGATIVE)
[2020-10-24 04:00] VITALS: BP 112/82
[2020-10-24] MEDS: BLOOD SUGAR DIAGNOSTIC STRIP TEST SCH ×4 (06:50→20:24)
[2020-10-24 07:22] LABS: CHLORIDE 100 mEq/L (98-107)
[2020-10-24] MEDS: INSULIN LISPRO 100 UNITS/ML SUBCUT SCH ×4 (07:44→20:25)
[2020-10-24 07:48] LABS: BASOPHILS % 0.8 % (0.0-2.0); EOSINOPHILS % 3.7 % (0.0-5.0); HEMATOCRIT. 32.7 % (42.0-52.0); HEMOGLOBIN. 10.9 g/dL (14.0-18.0); LYMPHOCYTES % 23.6 % (20.0-50.0); MEAN CORPUSCULAR HEMOGLOBIN 32.1 pg (28.0-32.0); MEAN PLATELET VOLUME 10.5 fl (7.4-10.4); MONOCYTES % 6.6 % (2.0-8.0); NEUTROPHILS % 65.3 % (40.0-76.0); PLATELET 132 x1000/uL (130-400); RED BLOOD CELL COUNT 3.41 mill/uL (4.7-6.1); RED CELL DISTRIBUTION WIDTH 17.5 % (11.6-14.6)
[2020-10-24] MEDS ORDERED: SODIUM BICARBONATE 4% (2.4MEQ) 5ML VIAL IV ONE (07:58)
[2020-10-24 08:00] VITALS: BP 138/76
[2020-10-24] MEDS ORDERED: ASPIRIN 81MG EC TABLET PO SCH (09:00)
[2020-10-24] MEDS: METOPROLOL TARTRATE 25MG TABLET PO SCH ×2 (09:41→20:24)
[2020-10-24] MEDS: PHENYTOIN SODIUM EXTENDED 100MG CAPSULE PO SCH ×3 (09:41→17:12)
[2020-10-24] MEDS: ASPIRIN 81MG EC TABLET PO SCH (11:54)
[2020-10-24] MEDS: CLOPIDOGREL 75MG TABLET PO SCH (11:54)
[2020-10-24 12:19] VITALS: BP 128/68
[2020-10-24] MEDS ORDERED: FURO-151 MT (13:02)
[2020-10-24] MEDS ORDERED: CLOP-31 MT (13:02)
[2020-10-24] MEDS ORDERED: METO25TA6 PO (13:02)
[2020-10-24] MEDS ORDERED: ATOR20TA MT (13:02)
[2020-10-24] MEDS ORDERED: ASPI-1497 MT (13:02)
[2020-10-24 16:00] VITALS: BP 118/58
[2020-10-24 20:10] VITALS: BP 146/82
[2020-10-24] MEDS: FAMOTIDINE 20MG TABLET PO SCH (20:24)
[2020-10-25 00:11] VITALS: BP 128/76
[2020-10-25 04:36] VITALS: BP 139/83
[2020-10-25] MEDS: INSULIN LISPRO 100 UNITS/ML SUBCUT SCH ×2 (06:23→13:03)
[2020-10-25] MEDS: BLOOD SUGAR DIAGNOSTIC STRIP TEST SCH ×2 (06:23→12:57)
[2020-10-25 06:58] LABS: CHLORIDE 98 mEq/L (98-107)
[2020-10-25 07:06] LABS: BASOPHILS % 0.8 % (0.0-2.0); EOSINOPHILS % 1.7 % (0.0-5.0); HEMATOCRIT. 32.8 % (42.0-52.0); HEMOGLOBIN. 10.8 g/dL (14.0-18.0); LYMPHOCYTES % 20.6 % (20.0-50.0); MEAN CORPUSCULAR HEMOGLOBIN 31.5 pg (28.0-32.0); MEAN CORPUSCULAR VOLUME 95.2 fL (80.0-94.0); MEAN PLATELET VOLUME 10.5 fl (7.4-10.4); NEUTROPHILS % 70.9 % (40.0-76.0); PLATELET 129 x1000/uL (130-400); RED BLOOD CELL COUNT 3.44 mill/uL (4.7-6.1); RED CELL DISTRIBUTION WIDTH 17.4 % (11.6-14.6)
[2020-10-25 08:00] VITALS: BP 130/74
[2020-10-25] MEDS: FUROSEMIDE 40MG/4ML VIAL IVP SCH (10:10)
[2020-10-25] MEDS: PHENYTOIN SODIUM EXTENDED 100MG CAPSULE PO SCH ×2 (10:10→13:01)
[2020-10-25] MEDS: CLOPIDOGREL 75MG TABLET PO SCH (10:11)
[2020-10-25] MEDS: ASPIRIN 81MG EC TABLET PO SCH (10:11)
[2020-10-25] MEDS: METOPROLOL TARTRATE 25MG TABLET PO SCH (10:11)
[2020-10-25 12:00] VITALS: BP 152/77
[2020-10-25 16:00] VITALS: BP 119/65
[2020-10-25 16:21] VITALS: BP 122/63
== END 2020-10-25 18:25 | disposition home or self-care (01) | DRG 292 ==
LOC: ER 13:41 → MICUSO 15:33 → 6WST 10-23 00:02
PROVIDERS: ADMIT Internal Medicine; ATTEND Internal Medicine
PROC: 0W9930Z Drainage of Right Pleural Cavity with Drainage Device, Percutaneous Approach (ICD-10-PCS; principal; 2020-10-24)
DX: I11.0 Hypertensive heart disease with heart failure (principal); J91.8 Pleural effusion in other conditions classified elsewhere; E87.1 Hypo-osmolality and hyponatremia; E44.1 Mild protein-calorie malnutrition; R06.03 Acute respiratory distress; I50.33 Acute on chronic diastolic (congestive) heart failure; I42.9 Cardiomyopathy, unspecified; E11.65 Type 2 diabetes mellitus with hyperglycemia; E87.5 Hyperkalemia; E78.5 Hyperlipidemia, unspecified; I34.0 Nonrheumatic mitral (valve) insufficiency; I27.20 Pulmonary hypertension, unspecified; K74.60 Unspecified cirrhosis of liver; E87.6 Hypokalemia; I71.2 Thoracic aortic aneurysm, without rupture; I25.10 Atherosclerotic heart disease of native coronary artery without angina pectoris; F10.20 Alcohol dependence, uncomplicated; Z20.822 Contact with and (suspected) exposure to COVID-19; Z79.02 Long term (current) use of antithrombotics/antiplatelets; Z95.5 Presence of coronary angioplasty implant and graft; Z79.899 Other long term (current) drug therapy; I25.2 Old myocardial infarction; Z79.82 Long term (current) use of aspirin; Z87.891 Personal history of nicotine dependence; Z68.26 Body mass index [BMI] 26.0-26.9, adult
CPT/HCPCS: 32555; 36415; 36600; 71045; 71275; 76700; 80048; 80053; 80061; 80305; 80320; 81003; 82375; 82550; 82553; 82805; 82962; 83735; 83880; 84132; 84439; 84443; 84484; 85025; 85379; 87426; 88108; 88312; 93005; 93970; 94644; 97162; 99285; J1815; J1940; J3480; J3490; J7060; Q9967